=== PATIENT | male | born 1985 | race Caucasian/White ===

== ENCOUNTER 2024-05-05 12:21 | Emergency (ER) | payer SELFPAY ==
[2024-05-05 16:11] LABS: AMPHETAMINES SCREEN, URINE PRESUMPTIVE POSITIVE (NEGATIVE); BARBITURATE SCREEN,URINE NEGATIVE (NEGATIVE); BENZODIAZEPINES SCREEN,URINE NEGATIVE (NEGATIVE); METHADONE SCREEN, URINE NEGATIVE (NEGATIVE); METHAMPHETAMINES SCREEN, URINE PRESUMPTIVE POSITIVE (NEGATIVE); OXYCODONE SCREEN,URINE NEGATIVE (NEGATIVE); PROPOXYPHENE SCREEN,URINE NEGATIVE (NEGATIVE); THC SCREEN,URINE 50 NG/ML PRESUMPTIVE POSITIVE (NEGATIVE)
== END 2024-05-05 17:56 | disposition home or self-care (01) ==
LOC: JP.ED 12:21
DX: F15.90 Other stimulant use, unspecified, uncomplicated (principal); Z79.899 Other long term (current) drug therapy
CPT/HCPCS: 36415; 80305-QW; 80307; 99282